=== PATIENT | female | born 1950 | race Two or more races ===

== ENCOUNTER 2017-09-04 02:59 | Emergency (ER) | payer SELFPAY ==
[2017-09-04 03:10] VITALS: BP 181/74; PULSE 92; RESP 18; TEMP 98.1; O2SAT 100
--- NOTE | 2017-09-04 03:22 | ED PDOC ---
Arrival/HPI - General Chief Complaint: Medical Clearance Time Seen by Provider: 09/04/17 03:16 Historian: Patient - History of Present Illness Narrative History of Present Illness (Text): 09/04/17 03:19 Ronit Loera is a 67 year old female, whose past medical history includes diabetes, who presents the Emergency department for medical clearance after taking the wrong medication at 12:30 this morning. Patient notes that she took 40 units of NovoLog instead of her usual 4 units of Levemir medication. Patient reports some palpitations, but otherwise feels fine. Patient was concerned and presented to the ED for further evaluation. Patient denies any fever, chills, chest pain, shortness of breath, nausea, vomiting, diarrhea, urinary symptoms, back pain, neck pain, headache, dizziness, or any other complaints. Time/Duration: Prior to Arrival (12:30am ) Symptom Course: Unchanged Activities at Onset: Light Context: Home Past Medical History - Provider Review Nursing Documentation Reviewed: Yes - Cardiac Hx Cardiac Disorders: Yes Hx Hypertension: Yes - Pulmonary Hx Respiratory Disorders: Yes Hx Asthma: Yes - Endocrine/Metabolic Hx Endocrine Disorders: Yes Hx Diabetes Mellitus Type 2: Yes - Psychiatric Hx Substance Use: No - Surgical History Hx Section: Yes (x4) Hx Coronary Stent: Yes (x6) Family/Social History - Physician Review Nursing Documentation Reviewed: Yes Family/Social History: Unknown Family HX Smoking Status: Light Smoker < 10 Cigarettes Daily Hx Alcohol Use: No Hx Substance Use: No Allergies/Home Meds Allergies/Adverse Reactions: Allergies No Known Allergies Allergy (Verified 09/04/17 03:03) Home Medications: Home Meds Medication Instructions Recorded Confirmed Aspirin [Adult Aspirin Regimen] 81 mg PO DAILY 09/04/17 09/04/17 Atorvastatin Calcium 40 mg PO DAILY 09/04/17 09/04/17 Clopidogrel [Plavix] 75 mg PO DAILY 09/04/17 09/04/17 Insulin Aspart [Novolog FLEXPEN] 0 unit SC TID 09/04/17 09/04/17 Insulin Detemir [Levemir] 40 unit SC Q12 09/04/17 09/04/17 Metoprolol Succinate [Toprol XL] 25 mg PO DAILY 09/04/17 09/04/17 metFORMIN [glucOPHAGE] 500 mg PO DAILY 09/04/17 09/04/17 Review of Systems - Review of Systems Constitutional: Normal Eyes: Normal ENT: Normal Respiratory: Normal. absent: SOB, Cough Cardiovascular: Palpitations. absent: Chest Pain Gastrointestinal: Normal Genitourinary Female: Normal. absent: Dysuria, Frequency, Hematuria, Urine Output Changes Musculoskeletal: Normal. absent: Back Pain, Neck Pain Skin: Normal. absent: Rash Neurological: Normal. absent: Headache, Dizziness Endocrine: Normal Hemo/Lymphatic: Normal Psychiatric: Normal Physical Exam Vital Signs Reviewed: Yes Vital Signs Temp Pulse Resp BP Pulse Ox 09/04/17 03:06 98.1 F 92 H 18 181/74 H 100 Temperature: Afebrile Blood Pressure: Hypertensive Pulse: Regular Respiratory Rate: Normal Appearance: Positive for: Well-Appearing, Non-Toxic, Comfortable Pain Distress: None Mental Status: Positive for: Alert and Oriented X 3 Finger Stick Blood Glucose: 96 - Systems Exam Head: Present: Atraumatic, Normocephalic Pupils: Present: PERRL Extroacular Muscles: Present: EOMI Conjunctiva: Present: Normal Mouth: Present: Moist Mucous Membranes Neck: Present: Normal Range of Motion Respiratory/Chest: Present: Clear to Auscultation, Good Air Exchange. No: Respiratory Distress, Accessory Muscle Use Cardiovascular: Present: Regular Rate and Rhythm, Normal S1, S2. No: Murmurs Abdomen: Present: Normal Bowel Sounds. No: Tenderness, Distention, Peritoneal Signs Back: Present: Normal Inspection Upper Extremity: Present: Normal Inspection. No: Cyanosis, Edema Lower Extremity: Present: Normal Inspection. No: Edema Neurological: Present: GCS=15, CN II-XII Intact, Speech Normal Skin: Present: Warm, Dry, Normal Color. No: Rashes Psychiatric: Present: Alert, Oriented x 3, Normal Insight, Normal Concentration Medical Decision Making ED Course and Treatment: 09/04/17 03:16 Impression: 67 year old female presents to the Emergency department after mistakenly taking Novalog instead of Levemir. Plan: -- Labs -- Reassess and disposition Progress Notes: 09/04/17 04:30 Labs reviewed, pt noted to be anemia. Pt unsure of her baseline and denies any bleeding. Spoke with poison control, who recommended prolonged observation due to high dose of insulin taken, half like may be altered due to doseage. Pt declined admission for further observation. Pt states she feels great. Leaving Against Medical Advice (AMA): The patient is choosing to leave against medical advice. I have personally explained to the patient that choosing to do so may result in permanent bodily harm or . I have discussed at great length that without further evaluation and monitoring there may be unforeseen circumstances and/or deterioration causing permanent bodily harm or as a result of their choice. The patient is alert, oriented, and shows the mental capacity to make clear decisions regarding the patients health care at this time. The patient continues to wish to leave against medical advice. Patient is aware of the importance to following up as instructed. The patient has been advised that they should return to the emergency room immediately if they change their mind at any time, or if their condition begins to change or worsen in any way.> - Lab Interpretations Lab Results: 09/04/17 03:50 09/04/17 03:50 Lab Results 09/04/17 03:50: PT 11.4, INR 0.99, APTT 21.9 L 09/04/17 03:50: Sodium 143, Potassium 4.5, Chloride 106, Carbon Dioxide 25, Anion Gap 16, BUN 21, Creatinine 0.7, Est GFR ( Amer) > 60, Est GFR (Non- Af Amer) > 60, Random Glucose 80, Calcium 10.0, Total Bilirubin 0.3, AST 45 H, ALT 29, Alkaline Phosphatase 78, Total Protein 8.0, Albumin 4.1, Globulin 3.9, Albumin/Globulin Ratio 1.0 L 09/04/17 03:50: WBC 9.3, RBC 4.16, Hgb 8.9 L, Hct 29.9 L, MCV 71.9 L, MCH 21.4 L , MCHC 29.8 L, RDW 16.4 H, Plt Count 266, MPV 9.4, Gran % 76.7 H, Lymph % (Auto ) 14.9 L, [place] % (Auto) 6.6 H, Eos % (Auto) 1.4 L, Baso % (Auto) 0.4, Gran # 7.12 H, Lymph # (Auto) 1.4, [place] # (Auto) 0.6, Eos # (Auto) 0.1, Baso # (Auto) 0.04 I have reviewed the lab results: Yes - Scribe Statement The provider has reviewed the documentation as recorded by the Alvina Hurtado training under Marjorie Cadet All medical record entries made by the Scribe were at my direction and personally dictated by me. I have reviewed the chart and agree that the record accurately reflects my personal performance of the history, physical exam, medical decision making, and the department course for this patient. I have also personally directed, reviewed, and agree with the discharge instructions and disposition. Disposition/Present on Arrival - Present on Arrival Any Indicators Present on Arrival: No History of DVT/PE: No History of Uncontrolled Diabetes: No Urinary Catheter: No History of Decub. Ulcer: No History Surgical Site Infection Following: None - Disposition Have Diagnosis and Disposition been Completed?: Yes Diagnosis: Insulin overdose Disposition: AGAINST MEDICAL ADVICE Disposition Time: 04:31 Condition: UNKNOWN Discharge Instructions (ExitCare): Diabetic Hypoglycemia (DC) Additional Instructions: you are declining admission to the hospital.. return to er with worsening symptoms or concerns. Referrals: [facility] [Outside] - Follow up with primary [facility] [place] [Outside] - Follow up with primary Forms: [facility] [employer] (Polish)
[2017-09-04 04:01] LABS: BASO # 0.04 K/mm3 (0.0-2.0); BASO % 0.4 % (0.0-3.0); EOS # 0.1 (0.0-0.7); EOS % 1.4 % (1.5-5.0); GRAN # 7.12 (1.4-6.5); GRAN % 76.7 % (50.0-68.0); HEMOGLOBIN 8.9 g/dL (12.0-16.0); LYMPH # 1.4 (1.2-3.4); LYMPH % 14.9 % (22.0-35.0); MEAN CELL VOLUME 71.9 fl (80.0-105.0); MEAN CORPUSCULAR HEMOGLOBIN 21.4 pg (25.0-35.0); MEAN CORPUSCULAR HGB CONC 29.8 g/dl (31.0-37.0); MEAN PLATELET VOLUME 9.4 fl (7.0-11.0); MONO # 0.6 (0.1-0.6); MONO % 6.6 % (1.0-6.0); RBC 4.16 10^6/uL (3.5-6.1); RED CELL DISTRIBUTION WIDTH 16.4 % (11.5-14.5); WHITE BLOOD COUNT 9.3 10^3/ul (4.5-11.0)
[2017-09-04 04:19] LABS: ALBUMIN 4.1 g/dL (3.0-4.8); GFR AFRICAN-AMERICAN > 60; GFR NON-AFRICAN AMERICAN > 60
[2017-09-04 04:22] LABS: INR 0.99 (0.93-1.08); PARTIAL THROMBOPLASTIN TIME 21.9 Seconds (25.1-36.5); PROTHROMBIN TIME 11.4 SECONDS (9.4-12.5)
[2017-09-04 04:24] LABS: ALT/SGPT 29 U/L (7-56); AST/SGOT 45 U/L (14-36); BLOOD UREA NITROGEN 21 mg/dL (7-21)
== END 2017-09-04 04:32 | disposition left against medical advice (07) ==
LOC: ED 02:59
DX: T38.3X1A Poisoning by insulin and oral hypoglycemic [antidiabetic] drugs, accidental (unintentional), initial encounter (principal); R00.2 Palpitations; Y92.009 Unspecified place in unspecified non-institutional (private) residence as the place of occurrence of the external cause; E11.9 Type 2 diabetes mellitus without complications; I10 Essential (primary) hypertension